=== PATIENT | female | born 1950 ===

== ENCOUNTER 2017-04-28 10:32 | Observation (INO) | payer MEDICARE ==
[2017-04-28 10:43] VITALS: BMI 34.3
[2017-04-28] MEDS ORDERED: Iohexol 240 (50 ml) PO STA (11:19)
[2017-04-28] MEDS ORDERED: Morphine 4 MG/ML VIAL IV STA (11:20)
--- NOTE | 2017-04-28 11:32 | ED PDOC ---
HPI: Abdomen Time Seen by Provider: 04/28/17 10:57 Chief Complaint (Nursing): GI Problem Chief Complaint (Provider): Abdominal Pain History Per: Patient History/Exam Limitations: no limitations Onset/Duration Of Symptoms: Days (x 5 days) Current Symptoms Are (Timing): Still Present Additional Complaint(s): Brooke Johnson is a 66-year-old female with a past medical history of diabetes and hypertension, who presents to the emergency department with complaints of diffuse abdominal pain associated with nausea and constipation ongoing for 5 days. Patient denies vomiting, nausea, fever, chest pain, and shortness of breath. Last bowel movement was earlier today. PMD: None provided Past Medical History Reviewed: Historical Data, Nursing Documentation, Vital Signs Vital Signs: Last Vital Signs Temp 98 F 04/28/17 15:29 Pulse 79 04/28/17 15:29 Resp 18 04/28/17 15:29 BP 135/88 04/28/17 15:29 Pulse Ox 99 04/28/17 15:29 - Medical History PMH: Diabetes, HTN, Hyperlipidemia - Surgical History Surgical History: Cholecystectomy - Family History Family History: States: Unknown Family Hx - Social History Current smoker - smoking cessation education provided: No Alcohol: None Drugs: Denies - Home Medications Home Medications: Ambulatory Orders Medication Instructions Recorded Nitrofurantoin Macrocrystals 100 mg PO BID #13 cap 04/28/17 [Macrobid] Phenazopyridine [Pyridium] 200 mg PO TID PRN #6 tab 04/28/17 - Allergies Allergies/Adverse Reactions: Allergies Allergy/AdvReac Type Severity Reaction Status Date / Time No Known Allergies Allergy Verified 04/28/17 11:19 Review of Systems ROS Statement: Except As Marked, All Systems Reviewed And Found Negative Constitutional: Negative for: Fever, Chills Cardiovascular: Negative for: Chest Pain Gastrointestinal: Positive for: Abdominal Pain, Constipation. Negative for: Nausea, Vomiting Physical Exam - Reviewed Nursing Documentation Reviewed: Yes Vital Signs Reviewed: Yes - Physical Exam Appears: Positive for: Well, Non-toxic, No Acute Distress Head Exam: Positive for: ATRAUMATIC, NORMAL INSPECTION, NORMOCEPHALIC Skin: Positive for: Normal Color, Warm, Dry Eye Exam: Positive for: Normal appearance Neck: Positive for: Normal, Painless ROM, Supple Cardiovascular/Chest: Positive for: Regular Rate, Rhythm Respiratory: Positive for: CNT, Normal Breath Sounds Gastrointestinal/Abdominal: Positive for: Bowel Sounds, Soft, Tenderness ( Generalized abdominal tenderness, mostly LUQ). Negative for: Normal Exam Back: Positive for: Normal Inspection. Negative for: Vertebral Tenderness Extremity: Positive for: Normal ROM. Negative for: Pedal Edema, Deformity Neurologic/Psych: Positive for: Alert, Oriented - Laboratory Results Result Diagrams: 04/28/17 11:34 04/28/17 11:34 - ECG O2 Sat by Pulse Oximetry: 96 (RA) Pulse Ox Interpretation: Normal - CT Scan/US CT abd/pelvis Other Rad Studies (CT/US): Radiology Report Reviewed (No acute findings related to/accounting for the clinical presentation. Additional benign and/or incidental findings described above.) Medical Decision Making Medical Decision Making: Time: 11:19 Initial Impression: Abdominal Pain Initial Plan: * EKG * CMP * Lipase * Urine dipstick * CBC w differentials * Prothromin Time * PTT * Morphine 2 mg IV * Iohexal 50 mL PO * Ondansetron 4 mg IV * AccuCheck * CT Abdomen/Pelvis PO and IV contrast * ED obs * reevaluation Scribe Attestation: Documented by Romelia Huff, acting as a scribe for Merly Umana MD. Provider Scribe Attestation: All medical record entries made by the Scribe were at my direction and personally dictated by me. I have reviewed the chart and agree that the record accurately reflects my personal performance of the history, physical exam, medical decision making, and the department course for this patient. I have also personally directed, reviewed, and agree with the discharge instructions and disposition. ED OBSERVATION Date of observation admission: 04/28/17 Time of observation admission: 11:19 - Observation admission statement Patient is being placed in observation because:: Abdominal Pain and extensive ED workup - Goals of Observation Goals of observation are:: Results of testings and symptom alleviation. - Progress Note Progress Note: 04/28/17 Time: 11:43 * NS IV 1000 mL at 1000 mL/hr 04/28/17 Time: 15:16 Upon provider reevaluation patient is feeling better, medically stable, and requires no further treatment in the ED at this time. Patient will be discharged home with Rx for Macrobid 100 mg PO. Counseling was provided and all questions were answered regarding diagnosis and need for follow up. There is agreement to discharge plan. Return if symptoms persist or worsen. Disposition - Clinical Impression Clinical Impression: UTI (urinary tract infection) - Patient ED Disposition Is Patient to be Admitted: No Counseled Patient/Family Regarding: Diagnosis, Need For Followup, Rx Given - Disposition Disposition: Routine/Home Disposition Time: 15:16 Condition: STABLE
[2017-04-28] MEDS ORDERED: Iohexol 240 (50 ml) ONE (11:36)
[2017-04-28 11:39] LABS: BASO # 0.1 K/uL (0.0-0.2); EOS % 12.8 % (0.0-4.0); HEMOGLOBIN 14.1 g/dL (12.0-16.0); LYMPH # 1.9 K/uL (1.0-4.3); LYMPH % 24.4 % (20.0-40.0); MEAN CELL VOLUME 89.9 fl (81.0-99.0); MEAN CORPUSCULAR HEMOGLOBIN 30.5 pg (27.0-31.0); MEAN CORPUSCULAR HGB CONC 33.9 g/dL (33.0-37.0); MONO # 0.4 K/uL (0.0-0.8); MONO % 5.7 % (0.0-10.0); NEUT # 4.4 K/uL (1.8-7.0); NEUT % 56.1 % (50.0-75.0); NRBC % 0.1 % (0.0-0.0); RBC 4.61 Mil/uL (3.80-5.20); RED CELL DISTRIBUTION WIDTH 14.5 % (11.5-14.5); WHITE BLOOD COUNT 7.8 K/uL (4.8-10.8)
[2017-04-28] MEDS ORDERED: Sodium Chloride 0.9% 1,000 ML IV STA (11:43)
[2017-04-28 11:44] LABS: SQUAMOUS EPITHIAL 38 /hpf (0-5); URINE BACTERIA FEW (<OCC); URINE BILIRUBIN NEGATIVE (NEGATIVE); URINE BLOOD MODERATE (NEGATIVE); URINE CLARITY CLOUDY (Clear); URINE COLOR AMBER (YELLOW); URINE GLUCOSE (UA) NEG (Normal); URINE LEUKOCYTE ESTERASE NEG Leu/uL (Negative); URINE NITRATE NEGATIVE (NEGATIVE); URINE PROTEIN 30 mg/dL (NEGATIVE)
[2017-04-28 11:59] LABS: ALB/GLOB RATIO 1.4 (1.0-2.1); ALBUMIN 4.4 g/dL (3.5-5.0); ALT/SGPT 36 U/L (9-52); AST/SGOT 19 U/L (14-36); BLOOD UREA NITROGEN 25 mg/dl (7-17); CALCIUM 9.9 mg/dL (8.4-10.2); GFR AFRICAN-AMERICAN > 60; GFR NON-AFRICAN AMERICAN > 60; LIPASE 104 U/L (23-300)
[2017-04-28 12:00] LABS: INR 1.1 (0.9-1.2); PARTIAL THROMBOPLASTIN TIME 49.7 Seconds (25.6-37.1); PROTHROMBIN TIME 12.9 Seconds (9.8-13.1)
--- NOTE | 2017-04-28 14:51 | CT ---
PROCEDURE: CT Abdomen and Pelvis with contrast HISTORY: Generalized abdominal pain COMPARISON: None. TECHNIQUE: Contrast dose: 95 cc Omnipaque 300 Radiation dose: Total exam DLP = 1067.90 mGy-cm. This CT exam was performed using one or more of the following dose reduction techniques: Automated exposure control, adjustment of the mA and/or kV according to patient size, and/or use of iterative reconstruction technique. FINDINGS: LOWER THORAX: Unremarkable. LIVER: Hepatic steatosis. No focal masses. No intrahepatic bile duct dilatation or perihepatic ascites. GALLBLADDER AND BILE DUCTS: Status post cholecystectomy. No abnormality is seen in the gallbladder fossa. PANCREAS: Unremarkable. No gross lesion or ductal dilatation. SPLEEN: Unremarkable. ADRENALS: Unremarkable. No mass. KIDNEYS AND URETERS: Unremarkable. No hydronephrosis. No solid mass. Incidental finding(s): Simple cysts right kidney. VASCULATURE: Unremarkable. No aortic aneurysm. BOWEL: Unremarkable. No obstruction. No gross mural thickening. APPENDIX: Normal appendix. PERITONEUM: Unremarkable. No free fluid. No free air. LYMPH NODES: Unremarkable. No enlarged lymph nodes. BLADDER: Unremarkable. REPRODUCTIVE: Unremarkable. BONES: No acute fracture. Orthopedic hardware related to laminectomy and fusion. Interpedicular screws identified L4, L5 and the 1st sacral element. No evidence of orthopedic hardware failure. OTHER FINDINGS: None. IMPRESSION: No acute findings related to/accounting for the clinical presentation. Additional benign and/or incidental findings described above.
--- NOTE | 2017-04-28 15:05 | CARD ---
APPROVED REPORT EKG Measurement Heart [id number] <Conclusion> Sinus bradycardia Otherwise normal ECG
[2017-04-28 15:30] VITALS: BP 135/88; PULSE 79; RESP 18; TEMP 98
[2017-04-28 15:42] VITALS: O2SAT 96
== END 2017-04-28 15:19 | disposition home or self-care (01) ==
LOC: H.ER 10:32 → H.EROBSV 11:19
PROVIDERS: ADMIT Emergency Medicine; ATTEND Emergency Medicine
DX: N39.0 Urinary tract infection, site not specified (principal); E11.9 Type 2 diabetes mellitus without complications; I10 Essential (primary) hypertension; E78.5 Hyperlipidemia, unspecified; K59.00 Constipation, unspecified
CPT/HCPCS: 36415; 74177; 80053; 81003; 82948; 83690; 85025; 85610; 85730; 93005; 96374; 96375; 99284; G0378; J2405; J7040; Q9966

== ENCOUNTER 2017-05-09 13:18 | Emergency (ER) | payer MEDICARE ==
[2017-05-09 13:19] VITALS: BMI 34.3
[2017-05-09 13:29] VITALS: BP 143/109; PULSE 64; RESP 16; TEMP 97.6; O2SAT 98
--- NOTE | 2017-05-09 13:51 | ED PDOC ---
HPI: Abdomen Time Seen by Provider: 05/09/17 13:35 Chief Complaint (Nursing): Abdominal Pain Chief Complaint (Provider): Abdominal Pain History Per: Patient History/Exam Limitations: no limitations Onset/Duration Of Symptoms: Days (x3), Persistent Current Symptoms Are (Timing): Still Present Location Of Pain/Discomfort: Suprapubic Quality Of Discomfort: "Pain" Associated Symptoms: Nausea, Urinary Symptoms (mild urgency) Additional Complaint(s): 66 year old female presents to ED with complaints of lower abdominal pain x3 days and has a past medical history of DM, HTN, hypercholesterolemia, and chronic back pain. Patient states she was seen in ED x11 days ago for the same pain, diagnosed with a UTI, and discharged with prescriptions for Macrobid and Pyridium. Patient states that pain resolved after course of antibiotics before reappearing x3 days ago. Describes the pain as suprapubic, strong, and constant. Believes it is the same pain that she had previously. (-) dysuria, frequency, vaginal bleeding, chest pain, vomiting, SOB, numbness, tingling, or incontinence. (+) mild urgency, chronic lower back pain, and nausea. No constipation. PCP: AUNG Abnormal Vaginal Bleeding: No Past Medical History Reviewed: Historical Data, Nursing Documentation, Vital Signs Vital Signs: Last Vital Signs Temp 97.6 F 05/09/17 13:26 Pulse 64 05/09/17 13:26 Resp 16 05/09/17 13:26 BP 143/109 H 05/09/17 13:26 Pulse Ox 98 05/09/17 15:54 - Medical History PMH: Diabetes, HTN, Hyperlipidemia Denies: No Chronic Diseases, Chronic Kidney Disease - Surgical History Surgical History: Back Surgery, Cholecystectomy Other surgeries: Hysterectomy - Family History Family History: States: Unknown Family Hx - Living Arrangements Living Arrangements: With Family - Social History Current smoker - smoking cessation education provided: No Ex-Smoker (has not smoked in the last 12 months): No Alcohol: None Drugs: Denies - Home Medications Home Medications: Ambulatory Orders Medication Instructions Recorded Nitrofurantoin Macrocrystals 100 mg PO BID #13 cap 04/28/17 [Macrobid] Phenazopyridine [Pyridium] 200 mg PO TID PRN #6 tab 04/28/17 Ciprofloxacin HCl [Cipro] 500 mg PO BID 7 Days 05/09/17 Ibuprofen [Motrin] 600 mg PO TID 7 Days 05/09/17 - Allergies Allergies/Adverse Reactions: Allergies Allergy/AdvReac Type Severity Reaction Status Date / Time No Known Allergies Allergy Verified 04/28/17 11:19 Review of Systems ROS Statement: Except As Marked, All Systems Reviewed And Found Negative Cardiovascular: Negative for: Chest Pain Respiratory: Negative for: Shortness of Breath Gastrointestinal: Positive for: Nausea, Abdominal Pain. Negative for: Vomiting Genitourinary Female: Positive for: Other (mild urgency). Negative for: Dysuria , Frequency, Incontinence, Vaginal Bleeding Musculoskeletal: Positive for: Back Pain (chronic) Neurological: Negative for: Numbness Physical Exam - Reviewed Nursing Documentation Reviewed: Yes Vital Signs Reviewed: Yes - Physical Exam Appears: Positive for: Non-toxic Head Exam: Positive for: ATRAUMATIC, NORMOCEPHALIC Skin: Positive for: Normal Color, Warm, Dry Eye Exam: Positive for: Normal appearance, EOMI, PERRL ENT: Positive for: Normal ENT Inspection Neck: Positive for: Normal, Painless ROM, Supple Cardiovascular/Chest: Positive for: Regular Rate, Rhythm. Negative for: Murmur Respiratory: Positive for: Normal Breath Sounds Gastrointestinal/Abdominal: Positive for: Soft, Tenderness (mild diffuse tenderness). Negative for: Normal Exam, Guarding, Rebound Back: Positive for: Normal Inspection. Negative for: L CVA Tenderness, R CVA Tenderness Extremity: Positive for: Normal ROM. Negative for: Deformity Neurologic/Psych: Positive for: Alert, Oriented. Negative for: Motor/Sensory Deficits - Laboratory Results Result Diagrams: 05/09/17 14:22 05/09/17 14:22 Interpretation Of Abn Labs: 11.7 wbc, urine wbc Interpretation Of Abnormal: 31 bun - ECG O2 Sat by Pulse Oximetry: 98 (RA) Pulse Ox Interpretation: Normal Medical Decision Making Medical Decision Makin Initial impression: abdominal pain Initial plan: * Labs * UDip * Toradol 15mg IVP * Zofran Inj 4mg IV * NS IV * UA * Re-eval CTA A/P FINDINGS FROM 04/28/2017: LOWER THORAX: Unremarkable. LIVER: Hepatic steatosis. No focal masses. No intrahepatic bile duct dilatation or perihepatic ascites. GALLBLADDER AND BILE DUCTS: Status post cholecystectomy. No abnormality is seen in the gallbladder fossa. PANCREAS: Unremarkable. No gross lesion or ductal dilatation. SPLEEN: Unremarkable. ADRENALS: Unremarkable. No mass. KIDNEYS AND URETERS: Unremarkable. No hydronephrosis. No solid mass. Incidental finding(s): Simple cysts right kidney. VASCULATURE: Unremarkable. No aortic aneurysm. BOWEL: Unremarkable. No obstruction. No gross mural thickening. APPENDIX: Normal appendix. PERITONEUM: Unremarkable. No free fluid. No free air. LYMPH NODES: Unremarkable. No enlarged lymph nodes. BLADDER: Unremarkable. REPRODUCTIVE: Unremarkable. BONES: No acute fracture. Orthopedic hardware related to laminectomy and fusion. Interpedicular screws identified L4, L5 and the 1st sacral element. No evidence of orthopedic hardware failure. OTHER FINDINGS: None. IMPRESSION: No acute findings related to/accounting for the clinical presentation. Additional benign and/or incidental findings described above. Scribe Attestation: Documented by Lidia Nettles acting as a scribe for Matheus Love MD. Scribe Attestation: All medical record entries made by the Scribe were at my direction and personally dictated by me. I have reviewed the chart and agree that the record accurately reflects my personal performance of the history, physical exam, medical decision making, and the department course for this patient. I have also personally directed, reviewed, and agree with the discharge instructions and disposition. 1556: Stable. AAOx3. Pain free. Tolerated PO. Fu with pcp. Rx for possible uti. Got macrobid last visit. Will rx cipro. Disposition - Clinical Impression Clinical Impression: Abdominal pain, UTI (urinary tract infection) - Patient ED Disposition Is Patient to be Admitted: No Counseled Patient/Family Regarding: Studies Performed, Diagnosis, Need For Followup, Rx Given - Disposition Referrals: Rishi MORENO,MD Ta [Medical Doctor] - 05/11/17 [facility] [Outside] - 05/11/17 Disposition: Routine/Home Disposition Time: 15:59 Condition: FAIR Additional Instructions: Return if not better in 3 days. Prescriptions: Ciprofloxacin HCl [Cipro] 500 mg PO BID 7 Days Ibuprofen [Motrin] 600 mg PO TID 7 Days Instructions: Urinary Tract Infection in Women (ED), Abdominal Pain (ED) Forms: [employer] (Amharic) Print Language: PANAMANIAN
[2017-05-09] MEDS ORDERED: Sodium Chloride 0.9% 1,000 ML IV STA (13:53)
[2017-05-09 14:32] LABS: BASO # 0.1 K/uL (0.0-0.2); BASO % 0.5 % (0.0-2.0); EOS # 1.8 K/uL (0.0-0.7); HEMOGLOBIN 14.4 g/dL (12.0-16.0); LYMPH # 2.3 K/uL (1.0-4.3); LYMPH % 19.7 % (20.0-40.0); MEAN CELL VOLUME 90.9 fl (81.0-99.0); MEAN CORPUSCULAR HEMOGLOBIN 30.4 pg (27.0-31.0); MEAN CORPUSCULAR HGB CONC 33.4 g/dL (33.0-37.0); MEAN PLATELET VOLUME 9.2 fl (7.2-11.7); MONO # 0.7 K/uL (0.0-0.8); MONO % 6.3 % (0.0-10.0); NEUT # 6.9 K/uL (1.8-7.0); NEUT % 58.5 % (50.0-75.0); RBC 4.74 Mil/uL (3.80-5.20); RED CELL DISTRIBUTION WIDTH 14.2 % (11.5-14.5); WHITE BLOOD COUNT 11.7 K/uL (4.8-10.8)
[2017-05-09 14:38] LABS: SQUAMOUS EPITHIAL 7 /hpf (0-5); URINE BACTERIA RARE (<OCC); URINE BILIRUBIN SMALL (NEGATIVE); URINE BLOOD MODERATE (NEGATIVE); URINE CLARITY CLOUDY (Clear); URINE COLOR AMBER (YELLOW); URINE GLUCOSE (UA) NEG (Normal); URINE LEUKOCYTE ESTERASE NEG Leu/uL (Negative); URINE NITRATE NEGATIVE (NEGATIVE); URINE PROTEIN 30 mg/dL (NEGATIVE)
[2017-05-09 14:41] LABS: ALB/GLOB RATIO 1.6 (1.0-2.1); ALBUMIN 4.8 g/dL (3.5-5.0); ALT/SGPT 33 U/L (9-52); AST/SGOT 21 U/L (14-36); BLOOD UREA NITROGEN 31 mg/dl (7-17); CALCIUM 10.1 mg/dL (8.4-10.2); GFR AFRICAN-AMERICAN > 60; GFR NON-AFRICAN AMERICAN > 60
== END 2017-05-09 16:30 | disposition home or self-care (01) ==
LOC: H.ER 13:18
DX: N39.0 Urinary tract infection, site not specified (principal); E11.9 Type 2 diabetes mellitus without complications; E78.5 Hyperlipidemia, unspecified; I10 Essential (primary) hypertension; Z90.49 Acquired absence of other specified parts of digestive tract
CPT/HCPCS: 80053; 81003; 85025; 96374; 96375; 99282; J1885; J2405; J7040